=== PATIENT | male | born 1955 | race Caucasian/White ===

== ENCOUNTER 2017-03-02 14:56 | Outpatient (RCR) | payer OTHER | END 2017-03-28 | LOC: PT 14:56 | PROVIDERS: ATTEND Neurological Surgery | DX: M54.12 Radiculopathy, cervical region (principal) ==

== ENCOUNTER → 2018-05-25 | Outpatient (CLI) | payer OTHER | LOC: RAD 13:45 | PROVIDERS: ATTEND Family Medicine | DX: M79.89 Other specified soft tissue disorders (principal) | CPT/HCPCS: 93971 ==

== ENCOUNTER → 2022-05-07 | Outpatient (CLI) | payer MEDICARE | LOC: US 10:41 | PROVIDERS: ATTEND Family Medicine | DX: R59.9 Enlarged lymph nodes, unspecified (principal) | CPT/HCPCS: 76536 ==

== ENCOUNTER → 2022-06-01 | Outpatient (CLI) | payer MEDICARE ==
[~2022-06-01] MED LIST: LIDOCAINE HCL 1% 30ML-PF VIAL ONE
== END ==
LOC: US 09:28
PROVIDERS: ATTEND Family Medicine
DX: R59.9 Enlarged lymph nodes, unspecified (principal)
CPT/HCPCS: 10005; 38505; 88172; 88173; 88305; J2001; 88300; 88304

== ENCOUNTER 2022-08-04 05:34 | Observation (INO) | payer MEDICARE ==
[2022-07-28 11:50] LABS: BASOPHILS # (AUTO) 0.1 (0.0-0.1); BASOPHILS % 0.6 % (0.0-1.0); EOSINOPHILS # (AUTO) 0.3 (0.0-0.4); EOSINOPHILS % 3.1 % (0.0-6.0); HEMATOCRIT 44.1 % (38.2-49.6); HEMOGLOBIN 14.9 g/dL (14.0-18.0); LYMPHOCYTES # (AUTO) 2.3 (1.0-3.2); LYMPHOCYTES % 22.2 % (18.0-39.1); MEAN CORPUSCULAR HEMOGLOBIN 31.1 pg (28-32); MEAN CORPUSCULAR HGB CONC 33.8 g/dL (31-35); MEAN CORPUSCULAR VOLUME 92.1 fL (81-99); NEUTROPHILS # (AUTO) 6.6 (2.1-6.9); NEUTROPHILS % 63.8 % (38.7-80.0); PLATELET COUNT 243 x10e3/uL (140-360); RED BLOOD COUNT 4.79 x10e6/uL (4.3-5.7); RED CELL DISTRIBUTION WIDTH 12.5 % (11.7-14.4)
[~2022-08-04] VITALS: Ht 175.3 cm; Wt 88.0 kg
[~2022-08-04 05:34] MED LIST changes: +ASPIRIN81 MG PO; +CELEBREX100 MG PO; -LIDOCAINE HCL 1% 30ML-PF VIAL ONE; +LIPITOR10 MG PO; +LOTREL 10-40 M1 EACH PO; +OMEGA-31000 MG PO; +VIT D3 PO; +[UNRECOGNIZED DRUG - OTHER] PO
[2022-08-04] MEDS ORDERED: LACTATED RINGER'S 1,000 ML ONE (06:01)
[2022-08-04] MEDS ORDERED: EPINEPHRINE HCL 1:1000 1ML 1 MG/ML AMP ONE (06:35)
[2022-08-04] MEDS ORDERED: SODIUM CHLORIDE 0.9% INJ 10 ML VIAL ONE (06:35)
[2022-08-04] MEDS: FENTANYL CITRATE/PF 100MCG/2 ML INJ ONE ×4 (09:19→09:56)
[2022-08-04] MEDS ORDERED: CELECOXIB 200 MG CAP PO PRN (09:30)
[2022-08-04] MEDS ORDERED: ONDANSETRON HCL INJ 2MG/ML 2ML 2 MG/ML VIAL IV PRN (09:30)
[2022-08-04] MEDS ORDERED: HYDROMORPHONE 1MG/1ML INJ ONE (10:25)
[2022-08-04 12:01] VITALS: BP 126/76; PULSE 79; RESP 16; TEMP 97.6; O2SAT 98
[2022-08-04] MEDS ORDERED: SUCCINYLCHOLINE CHLORIDE 20 MG/ML 10ML VIAL ONE (12:20)
[2022-08-04] MEDS ORDERED: PROPOFOL IV EMULSION 10 MG/ML 20 ML VIAL ONE (12:20)
[2022-08-04] MEDS ORDERED: LIDOCAINE HCL 2% LOCAL INJ 5 ML SDV VIAL INJ ONE (12:20)
[2022-08-04] MEDS ORDERED: ROCURONIUM BROMIDE 10 MG/ML 5ML VIAL IV ONE (12:20)
[2022-08-04] MEDS ORDERED: POVIDONE IODINE 0.05% 0.05 % ML PO ONE (12:20)
[2022-08-04] MEDS ORDERED: ONDANSETRON HCL INJ 2MG/ML 2ML 2 MG/ML VIAL ONE (12:20)
[2022-08-04] MEDS ORDERED: DEXAMETHASONE SOD PHOS INJ 4 MG/ML SDV ONE (12:20)
[2022-08-04] MEDS ORDERED: EPHEDRINE SULFATE INJ 50 MG/ML VIAL ONE (12:20)
[2022-08-04] MEDS ORDERED: SEVOFLURANE INHAL SOLN 250 ML PEN BTL ONE (12:20)
[2022-08-04 12:21] VITALS: BP 126/76; PULSE 79; RESP 16; TEMP 97.6; O2SAT 98
[2022-08-04 12:22] VITALS: BP 126/76; PULSE 79; RESP 16; TEMP 97.6; O2SAT 98
[2022-08-04] MEDS ORDERED: FENTANYL CITRATE/PF 100MCG/2 ML INJ ONE (12:36)
[2022-08-04] MEDS ORDERED: MIDAZOLAM HCL 2 MG/2 ML VIAL ONE (12:36)
[2022-08-04] MEDS: D5.45%NS/KCL 20MEQ 1,000 ML IV SCH ×2 (13:19→21:10)
[2022-08-04] MEDS: HYDROCODONE/APAP 5MG-325MG TAB PO PRN ×3 (13:23→23:44)
[2022-08-04 18:19] VITALS: BP 125/69; PULSE 77; RESP 20; TEMP 97.8; O2SAT 97
[2022-08-04 20:00] VITALS: BP 135/78; PULSE 75; RESP 20; TEMP 97.4; O2SAT 98
[2022-08-04] MEDS ORDERED: ATORVASTATIN 10 MG TAB PO SCH (21:00)
[2022-08-04 21:15] VITALS: BP 135/78; PULSE 75; RESP 20; TEMP 97.4; O2SAT 98
[2022-08-05 04:00] VITALS: BP 126/74; PULSE 59; RESP 18; TEMP 97.8; O2SAT 97
[2022-08-05] MEDS: D5.45%NS/KCL 20MEQ 1,000 ML IV SCH (06:17)
[2022-08-05 08:34] VITALS: BP 156/79; PULSE 57; RESP 21; TEMP 97.6; O2SAT 98
[2022-08-05 08:44] VITALS: BP 125/74; PULSE 57; RESP 21; TEMP 97.6; O2SAT 98
[2022-08-05] MEDS ORDERED: OMEGA 3 POLYUNSAT FATTY ACIDS 1000 MG SOFTGEL PO SCH (09:00)
[2022-08-05] MEDS ORDERED: AMLODIPINE BESYLATE 10 MG TAB PO SCH (09:00)
[2022-08-05] MEDS ORDERED: BENAZEPRIL HCL 10 MG TAB PO SCH (09:00)
== END 2022-08-05 09:29 | disposition home or self-care (01) ==
LOC: OR 05:34 → PACU V 09:14 → MED/SURG 11:29
PROVIDERS: ADMIT Otolaryngology; ATTEND Otolaryngology
DX: D11.0 Benign neoplasm of parotid gland (principal); E78.00 Pure hypercholesterolemia, unspecified; I10 Essential (primary) hypertension; Z01.810 Encounter for preprocedural cardiovascular examination; Z01.812 Encounter for preprocedural laboratory examination; Z01.818 Encounter for other preprocedural examination; Z79.899 Other long term (current) drug therapy; Z87.891 Personal history of nicotine dependence
CPT/HCPCS: 36415; 42420; 71046; 85025; 86850; 86900; 88307; 93005; C1713; G0378 ×2; J0171; J0330; J0690 ×2; J1100; J1170; J2001; J2250; J2405; J2704; J3010; J7121; 88304

== ENCOUNTER → 2023-12-23 | Outpatient (REF) | payer MEDICARE ==
[~2023-12-23] MED LIST changes: +AZO1 EACH; +VESICARE5 MG PO
== END ==
LOC: US 15:42
PROVIDERS: ATTEND Urology
DX: N28.1 Cyst of kidney, acquired (principal)
CPT/HCPCS: 76770; 76857